=== PATIENT | female | born 1945 | race Two or more races ===

== ENCOUNTER 2019-01-29 14:30 | Inpatient (IN) | payer OTHER, MEDICAID ==
[~2019-01-29] VITALS: Ht 144.8 cm; Wt 67.4 kg
[2019-01-29 16:29] LABS: Basophils # (auto) 0 uL; Basophils % (auto) 0.8 % (0.0-2.0); Eosinophils # (auto) 0 uL; Eosinophils % (auto) 0.3 % (0.0-7.0); Hematocrit 37.8 % (36.0-46.0); Hemoglobin 12.7 g/dL (12.2-16.2); Lymphocytes # (auto) 0.7 uL; Lymphocytes % (auto) 16.8 % (10.0-50.0); Mean Corpuscular Hemoglobin 30.3 pg (28.0-32.0); Mean Corpuscular Hgb Conc. 33.7 g/dL (32.0-36.0); Mean Corpuscular Volume 89.9 fL (80.0-100.0); Monocytes # (auto) 0.4 uL; Monocytes % (auto) 11.1 % (0.0-12.0); Neutrophils # (auto) 2.8 uL; Nucleated Red Blood Cells % 0.2 %; Platelet Count (auto) 199 10^3/uL (140-450); Red Cell Distribution Width 13.7 % (11.8-14.3); White Blood Cell 3.9 10^3/uL (4.4-10.8)
[2019-01-29 16:36] LABS: Calcium 8.6 mg/dL (8.5-10.1); Potassium 4.1 mmol/L (3.5-5.1)
[2019-01-29 16:38] LABS: INR 0.96 (0.9-1.15); Partial Thromboplastin Time 28.4 sec (23.64-32.05)
[2019-01-29 16:39] LABS: BUN/Creatinine Ratio 31.2; Bilirubin, Total 0.4 mg/dL (0.2-1.0); Total Protein 7.3 g/dL (6.4-8.2)
[2019-01-29] MEDS ORDERED: ASPirin 81 mg TAB PO ONE (17:30)
[2019-01-29] MEDS: ENOXAPARIN SOD 80 MG/0.8ML SYRINGE SC ONE ×2 (17:39→19:15)
[2019-01-29] MEDS ORDERED: BACL10TA PO (18:43)
[2019-01-29] MEDS ORDERED: BRIM0.159 OP (18:43)
[2019-01-29] MEDS ORDERED: AMLO5TAB15 PO (18:43)
[2019-01-29] MEDS ORDERED: GABA100C9 PO (18:43)
[2019-01-29] MEDS ORDERED: MORPHINE SULF INJ 2 MG/ML SYRINGE 1ML IV PRN ×2 (20:00)
[2019-01-29] MEDS ORDERED: NITROGLYCERIN 0.4 MG SL TAB SL PRN (20:00)
[2019-01-29] MEDS ORDERED: ACETAMINOPHEN 500 MG TAB PO PRN (20:00)
[2019-01-29] MEDS ORDERED: ONDANSETRON HCL 4 MG/2 ML VIAL IV PRN (20:00)
[2019-01-29 20:55] VITALS: BP 125/62
--- NOTE | 2019-01-29 20:55 | NUR ---
Telemetry admit from ER RASIMBA Phillip admitted to Telemetry unit after SBAR received. Patient oriented to Francisca Garcia, primary RN, unit, room, bed, and unit policies regarding patient care and visiting hours. Patient now on continuous telemetry monitoring, tele box # 3 and telemetry reading on arrival to unit is SR 69 . Patient placed on bedside oxygen, weighed by bed scale and encouraged to call if they need something. All questions and concerns addressed, patient verbalized understanding. PATIENT COMFORTABLE IN BED. PATIENT IS [place]YRGY[place] SPEAKING ONLY.
[2019-01-29 21:00] VITALS: BP 125/62
--- NOTE | 2019-01-29 21:00 | NUR ---
PATIENT REPORTS PAIN TO CHEST WHEN COUGHING. SHE STATES THE PAIN FEELS LIKE PRESSURE AND SORENESS. SHE STATES THAT SHE IS COMFORTABLE AT REST WITH NO PAIN.
[2019-01-30] MEDS: HYDROcodone-ACET 5/325MG TAB PO PRN ×2 (01:41→22:14)
[2019-01-30] MEDS ORDERED: BENA20TA14 PO (02:10)
[2019-01-30] MEDS ORDERED: WARF5TAB PO (02:10)
--- NOTE | 2019-01-30 03:23 | NUR ---
ROUNDS PATIENT RESTING COMFORTABLE IN BED. NO S/SX OF DISTRESS, SOB OR PAIN.
[2019-01-30 04:56] VITALS: BP 116/57
[2019-01-30 06:42] LABS: Basophils # (auto) 0 uL; Basophils % (auto) 0.8 % (0.0-2.0); Eosinophils # (auto) 0 uL; Eosinophils % (auto) 0.5 % (0.0-7.0); Hematocrit 34.4 % (36.0-46.0); Hemoglobin 11.9 g/dL (12.2-16.2); Lymphocytes # (auto) 1.1 uL; Lymphocytes % (auto) 34.3 % (10.0-50.0); Mean Corpuscular Hemoglobin 30.9 pg (28.0-32.0); Mean Corpuscular Hgb Conc. 34.7 g/dL (32.0-36.0); Monocytes # (auto) 0.5 uL; Monocytes % (auto) 15.2 % (0.0-12.0); Neutrophils # (auto) 1.6 uL; Neutrophils % (auto) 49.2 % (37.0-80.0); Nucleated Red Blood Cells % 0.1 %; Platelet Count (auto) 176 10^3/uL (140-450); Red Blood Cells 3.87 10^6/uL (4.0-5.20); Red Cell Distribution Width 13.4 % (11.8-14.3); White Blood Cell 3.2 10^3/uL (4.4-10.8)
[2019-01-30 07:00] LABS: Calcium 8.3 mg/dL (8.5-10.1); Potassium 3.9 mmol/L (3.5-5.1)
[2019-01-30 07:10] LABS: INR 0.96 (0.9-1.15)
--- NOTE | 2019-01-30 07:20 | NUR ---
CLOSING NOTE- NOC SHIFT ENDORSED PATIENT CARE TO DAY SHIFT NURSE CHILANGO STANLEY. PATIENT IS RESTING COMFORTABLE IN BED. NO S/SX OF DISTRESS OR SOB.
--- NOTE | 2019-01-30 07:45 | NUR ---
PATIENT OWN MEDS TO PHARMACY.
[2019-01-30 08:00] VITALS: BP 127/60
--- NOTE | 2019-01-30 08:00 | NUR ---
ASSESSMENT NOTE PATIENT IS ALERT ORIENTED X4, KOREAN SPEAKING, UNDERSTAND SOME LAO, RESTING COMFORTABLY IN BED NO DISTRESS NOTED, ABLE TO VERBALIS HER DEMANDS, SELF REPOSITION, CALL LIGHT WITHIN REACH.
[2019-01-30] MEDS: FAMOTIDINE 20 MG TAB PO SCH (09:07)
--- NOTE | 2019-01-30 11:30 | NUR ---
DR VERDUGO AT BED SIDE FOLLOWING UP ON PT WITH NEW ORDERS
[2019-01-30 12:00] VITALS: BP 154/78
[2019-01-30 16:14] LABS: Urine Bacteria NONE SEEN /hpf (None Seen); Urine Blood Negative /uL (Negative); Urine Specific Gravity 1.013 (1.001-1.035); Urine WBC 1 /hpf (0 - 5)
[2019-01-30 17:00] VITALS: BP 100/61
[2019-01-30] MEDS ORDERED: WARFARIN SODIUM 5 MG TAB PO ONE (17:00)
--- NOTE | 2019-01-30 18:52 | NUR ---
PT AONTINUE STABLE, CONTINUE MONITORING
--- NOTE | 2019-01-30 19:15 | NUR ---
Opening Shift Note Received report from isabella Moreno RN. Assumed care of patient, awake and alert. No S/S of distress/SOB or pain. Instructed on POC and to call for assist PRN, will continue to monitor for changes Q1hr and PRN. Bed placed in lowest position, bed alarm turned on and call light within reach.
[2019-01-30 21:53] VITALS: BP 129/62
--- NOTE | 2019-01-30 22:15 | NUR ---
ROUNDS PATIENT IS REQUESTING PAIN MEDICATION FOR PAIN TO ABD. WILL MONITOR.
[2019-01-31] VITALS (7 sets, daily range): BP systolic 123–135; BP diastolic 62–70
--- NOTE | 2019-01-31 04:46 | NUR ---
ROUNDS PATIENT IS RESTING IN BED WITH EYES CLOSED, NO DISTRESS NOTED AND PATIENT DENIES PAIN AT THIS TIME.
--- NOTE | 2019-01-31 07:20 | NUR ---
Opening Shift Note Received report and assumed care of patient. Patient is awake, alert and oriented. No signs or symptoms of distress noted, patient denies pain at this moment. Instructed patient on plan of care and to call for assistance as needed. Will continue to monitor.
[2019-01-31 08:33] LABS: Basophils # (auto) 0 uL; Basophils % (auto) 0.8 % (0.0-2.0); Eosinophils # (auto) 0.1 uL; Eosinophils % (auto) 1.7 % (0.0-7.0); Hematocrit 38.8 % (36.0-46.0); Hemoglobin 13.3 g/dL (12.2-16.2); Lymphocytes % (auto) 35.3 % (10.0-50.0); Mean Corpuscular Hemoglobin 30.4 pg (28.0-32.0); Mean Corpuscular Hgb Conc. 34.2 g/dL (32.0-36.0); Mean Corpuscular Volume 88.8 fL (80.0-100.0); Monocytes # (auto) 0.3 uL; Monocytes % (auto) 11.1 % (0.0-12.0); Neutrophils # (auto) 1.5 uL; Neutrophils % (auto) 51.1 % (37.0-80.0); Nucleated Red Blood Cells % 0.1 %; Platelet Count (auto) 193 10^3/uL (140-450); Red Blood Cells 4.37 10^6/uL (4.0-5.20); Red Cell Distribution Width 13.3 % (11.8-14.3)
[2019-01-31 08:46] LABS: INR 0.96 (0.9-1.15)
[2019-01-31] MEDS: FAMOTIDINE 20 MG TAB PO SCH (08:48)
[2019-01-31 08:57] LABS: BUN/Creatinine Ratio 30.3; Calcium 8.7 mg/dL (8.5-10.1); Potassium 4.2 mmol/L (3.5-5.1)
--- NOTE | 2019-01-31 13:12 | NUR ---
Rounds Patient is up in chair eating lunch. No signs or symptoms of distress noted, patient denies pain at this time. Will continue to monitor
--- NOTE | 2019-01-31 14:00 | NUR ---
PATIENT CONTINUE STABLE, VITAL SIGNS ARE WITHIN NORMAL, SITTING ON CHAIR AT BED SIDE, NO DISTRESS NOTED.
[2019-01-31] MEDS: HYDROcodone-ACET 5/325MG TAB PO PRN ×2 (16:55→23:21)
[2019-01-31] MEDS ORDERED: WARFARIN SODIUM 2.5 MG TAB PO ONE (17:00)
--- NOTE | 2019-01-31 18:00 | NUR ---
PT CONTINUE STABLE, CONTINUE MONITORING.
--- NOTE | 2019-01-31 23:00 | NUR ---
Rounds Patient is complaining of pain to right shoulder and back. Will give pain medication as ordered.
[2019-02-01 05:27] VITALS: BP 146/78
[2019-02-01] MEDS: HYDROcodone-ACET 5/325MG TAB PO PRN (05:37)
[2019-02-01 07:08] LABS: INR 0.98 (0.9-1.15)
--- NOTE | 2019-02-01 08:00 | NUR ---
Opening Shift Note Assumed care of patient, awake and alert. No S/S of distress/SOB or pain. Instructed on POC and to call for assist PRN, will continue to monitor for changes Q1hr and PRN.
[2019-02-01 09:00] VITALS: BP 118/68
[2019-02-01] MEDS: FAMOTIDINE 20 MG TAB PO SCH (10:06)
[2019-02-01 11:50] VITALS: BP 118/68
--- NOTE | 2019-02-01 13:57 | NUR ---
Discharge instructions given as ordered. Encourage to follow up with PMD (Follow up with Dr. Ferny Marin in 1-2 weeks Address : [address], [place], [address] #[phone]) as instructed. All questions and concerns addressed. Patient verbalized understanding. Medication reconciliation form completed and copy given to patient. Home medications held in Pharmacy returned to patient. IV removed with catheter intact, pressure dressing applied. Telemetry unit returned to ICU. Patient taken to vehicle via wheelchair with all personal belongings, accompanied by staff and family member. No distress noted at time of departure.
[2019-02-01] MEDS ORDERED: WARFARIN SODIUM 2.5 MG TAB PO ONE (17:00)
== END 2019-02-01 14:00 | disposition home or self-care (01) | DRG 605 ==
LOC: EDBD 14:30 → ER 14:38 → TELE 14:39 → TELE-EAST 21:06
PROVIDERS: ADMIT Nurse Practitioner Acute Care; ATTEND Internal Medicine Pulmonary Disease
DX: S20.219A Contusion of unspecified front wall of thorax, initial encounter (principal); N17.9 Acute kidney failure, unspecified; M94.0 Chondrocostal junction syndrome [Tietze]; S00.33XA Contusion of nose, initial encounter; D63.8 Anemia in other chronic diseases classified elsewhere; E78.00 Pure hypercholesterolemia, unspecified; E78.5 Hyperlipidemia, unspecified; I12.9 Hypertensive chronic kidney disease with stage 1 through stage 4 chronic kidney disease, or unspecified chronic kidney disease; N18.9 Chronic kidney disease, unspecified; I25.10 Atherosclerotic heart disease of native coronary artery without angina pectoris; I70.0 Atherosclerosis of aorta; Z95.2 Presence of prosthetic heart valve; Z95.5 Presence of coronary angioplasty implant and graft; Z79.899 Other long term (current) drug therapy; Z79.01 Long term (current) use of anticoagulants; Z82.49 Family history of ischemic heart disease and other diseases of the circulatory system; V89.2XXA Person injured in unspecified motor-vehicle accident, traffic, initial encounter; Y92.488 Other paved roadways as the place of occurrence of the external cause; Y93.89 Activity, other specified; Y99.8 Other external cause status
CPT/HCPCS: 36415; 71046; 71111; 80048; 80053; 80061; 81001; 83880; 84484; 85025; 85610; 85730; 86141; 93005; 93306; 94761; G0378

== ENCOUNTER 2019-03-30 22:05 | Emergency (ER) | payer OTHER, MEDICAID ==
[~2019-03-30] VITALS: Ht 157.5 cm; Wt 68.0 kg
[~2019-03-30 22:05] MED LIST: BENA20TA14 PO
[2019-03-30 22:53] LABS: Urine Bacteria NONE SEEN /hpf (None Seen); Urine Blood Negative /uL (Negative); Urine Specific Gravity 1.002 (1.001-1.035); Urine WBC 1 /hpf (0 - 5)
[2019-03-30 22:54] LABS: Basophils # (auto) 0.1 uL; Basophils % (auto) 1.2 % (0.0-2.0); Eosinophils # (auto) 0 uL; Eosinophils % (auto) 0.8 % (0.0-7.0); Hematocrit 39.8 % (36.0-46.0); Hemoglobin 13.5 g/dL (12.2-16.2); Mean Corpuscular Hemoglobin 30.3 pg (28.0-32.0); Mean Corpuscular Hgb Conc. 33.9 g/dL (32.0-36.0); Mean Corpuscular Volume 89.6 fL (80.0-100.0); Monocytes # (auto) 0.3 uL; Neutrophils # (auto) 3.3 uL; Nucleated Red Blood Cells % 0.1 %; Platelet Count (auto) 229 10^3/uL (140-450); Red Blood Cells 4.44 10^6/uL (4.0-5.20); Red Cell Distribution Width 13.6 % (11.8-14.3); White Blood Cell 4.8 10^3/uL (4.4-10.8)
[2019-03-30 23:13] LABS: Albumin 4.1 g/dL (3.4-5.0); BUN/Creatinine Ratio 28.7; Calcium 8.5 mg/dL (8.5-10.1); Magnesium 2.5 mg/dL (1.6-2.6); Potassium 3.6 mmol/L (3.5-5.1)
[2019-03-30 23:18] LABS: Bilirubin, Total 0.3 mg/dL (0.2-1.0); Total Protein 7.4 g/dL (6.4-8.2)
[2019-03-31] MEDS ORDERED: IOHEXOL 350 MG/ML 100ML IJ ONE ×2 (02:33→02:53)
[2019-03-31 04:25] VITALS: BP 142/67
[2019-03-31] MEDS ORDERED: cefTRIAXone 1GM/50ML D5W 50 ML IV ONE (04:30)
== END 2019-03-31 04:53 | disposition home or self-care (01) ==
LOC: EDBD 22:05 → ER 22:05
DX: R79.89 Other specified abnormal findings of blood chemistry (principal); N39.0 Urinary tract infection, site not specified; I25.2 Old myocardial infarction; F41.9 Anxiety disorder, unspecified
CPT/HCPCS: 36415; 71045; 71275; 80053; 81001; 83735; 83880; 84484; 85025; 85379; 93005; 96374; 99284; J0696; Q9967

== ENCOUNTER 2019-05-16 06:27 | Emergency (ER) | payer OTHER, MEDICAID ==
[~2019-05-16] VITALS: Ht 165.1 cm; Wt 68.0 kg
[2019-05-16 07:46] LABS: Basophils # (auto) 0 uL; Basophils % (auto) 0.6 % (0.0-2.0); Eosinophils # (auto) 0 uL; Eosinophils % (auto) 0.6 % (0.0-7.0); Hematocrit 36.3 % (36.0-46.0); Hemoglobin 12.5 g/dL (12.2-16.2); Lymphocytes # (auto) 0.6 uL; Lymphocytes % (auto) 20.2 % (10.0-50.0); Mean Corpuscular Hemoglobin 30.5 pg (28.0-32.0); Mean Corpuscular Hgb Conc. 34.5 g/dL (32.0-36.0); Mean Corpuscular Volume 88.3 fL (80.0-100.0); Monocytes # (auto) 0.2 uL; Monocytes % (auto) 6.1 % (0.0-12.0); Neutrophils # (auto) 2.3 uL; Neutrophils % (auto) 72.5 % (37.0-80.0); Nucleated Red Blood Cells % 0.1 %; Platelet Count (auto) 188 10^3/uL (140-450); Red Blood Cells 4.11 10^6/uL (4.0-5.20); Red Cell Distribution Width 13.5 % (11.8-14.3); White Blood Cell 3.2 10^3/uL (4.4-10.8)
[2019-05-16 08:04] LABS: Albumin 3.5 g/dL (3.4-5.0); Calcium 8.1 mg/dL (8.5-10.1); Potassium 3.9 mmol/L (3.5-5.1)
[2019-05-16 08:06] LABS: BUN/Creatinine Ratio 30.4
[2019-05-16 08:11] LABS: Bilirubin, Total 0.5 mg/dL (0.2-1.0); Total Protein 6.5 g/dL (6.4-8.2)
[2019-05-16 09:29] LABS: Urine Bacteria NONE SEEN /hpf (None Seen); Urine Blood Negative /uL (Negative); Urine Specific Gravity 1.008 (1.001-1.035); Urine WBC 1 /hpf (0 - 5)
[2019-05-16 09:56] VITALS: BP 140/60
== END 2019-05-16 10:44 | disposition home or self-care (01) ==
LOC: EDBD 06:27 → ER 06:27
DX: R42 Dizziness and giddiness (principal); R53.83 Other fatigue; R53.1 Weakness; I25.10 Atherosclerotic heart disease of native coronary artery without angina pectoris; I10 Essential (primary) hypertension
CPT/HCPCS: 36415; 80053; 81001; 84484; 85025; 93005

== ENCOUNTER 2022-10-23 18:04 | Emergency (ER) | payer OTHER, MEDICAID ==
[~2022-10-23] VITALS: Ht 160 cm; Wt 70.0 kg
[~2022-10-23 18:04] MED LIST changes: +BENA-36 PO; -BENA20TA14 PO
[2022-10-23 18:54] VITALS: BP 171/83
== END 2022-10-23 19:06 | disposition left against medical advice (07) ==
LOC: ER 18:04 → EDBD 18:04 → ER 19:06
DX: R51.9 Headache, unspecified (principal); Z53.21 Procedure and treatment not carried out due to patient leaving prior to being seen by health care provider; W01.0XXA Fall on same level from slipping, tripping and stumbling without subsequent striking against object, initial encounter; Y93.89 Activity, other specified; Y92.830 Public park as the place of occurrence of the external cause; Y99.8 Other external cause status